=== PATIENT | female | born 1960 | race Caucasian/White ===

== ENCOUNTER → 2016-12-17 | Outpatient (CLI) | payer MEDICARE ==
[~2016-12-17] MED LIST: ASPIRIN ADULT L81 M1 PO; ASPIRIN325 M2 PO; B12-METHYL1000 MCG PO; CIPROFLOXACIN500 MG PO; COMPAZINE10 MG PO; Clopidogrel75 MG PO; DAYPRO600 M1 PO; IBUPROFEN600 MG PO; LIPITOR20 MG PO; LIPITOR40 MG PO; LISINOPRIL5 MG PO; LOPRESSOR25 MG PO; Lopressor25 MG PO; NATURE'S BLEND F1 MG PO; OMEPRAZOLE20 M2 PO; Orphenadrine C100 MG PO; ROBAXIN750 MG PO; TOPAMAX25 M3 PO; TOPAMAX50 MG PO; TYLENOL WITH CO1 TA1 PO; Tessalon Perle100 MG PO; VICODIN 500 MG-1 TAB PO; ZANTAC150 MG PO
== END | disposition home or self-care (01) ==
LOC: RAD 22:41
DX: J32.4 Chronic pansinusitis (principal); M25.551 Pain in right hip; R09.81 Nasal congestion

== ENCOUNTER 2017-02-07 19:17 | Emergency (ER) | payer MEDICARE ==
[~2017-02-07] VITALS: Ht 162.5 cm; Wt 79.4 kg
[2017-02-07 19:28] VITALS: BP 111/77
[2017-02-07] MEDS ORDERED: PERCOCET 325 MG1 TA2 PO (20:52)
== END 2017-02-07 21:05 | disposition home or self-care (01) ==
LOC: ED 19:17
DX: S42.402A Unspecified fracture of lower end of left humerus, initial encounter for closed fracture (principal); F17.200 Nicotine dependence, unspecified, uncomplicated; E78.5 Hyperlipidemia, unspecified; Z79.82 Long term (current) use of aspirin; W18.30XA Fall on same level, unspecified, initial encounter; Y93.89 Activity, other specified; Y92.9 Unspecified place or not applicable; Y99.9 Unspecified external cause status

== ENCOUNTER → 2017-10-10 | Outpatient (CLI) | payer MEDICARE ==
[~2017-10-10] MED LIST changes: +PERCOCET 325 MG1 TA2 PO
== END | disposition home or self-care (01) ==
LOC: RAD 17:31
DX: M54.5 Low back pain (principal); M25.551 Pain in right hip; M79.604 Pain in right leg

== ENCOUNTER → 2018-10-04 | Outpatient (CLI) | payer MEDICARE, MEDICAID ==
[~2018-10-04] MED LIST changes: +MAGNESIUM250 M1 PO
== END | disposition home or self-care (01) ==
LOC: US 09-20 16:00
DX: N32.89 Other specified disorders of bladder (principal)

== ENCOUNTER → 2018-11-01 | Outpatient (CLI) | payer MEDICARE, MEDICAID ==
[~2018-11-01] MED LIST changes: +ATORVASTATIN CA40 M1 PO; +ESCITALOPRAM OX20 MG PO; +LIPITOR10 MG PO
[2018-11-01 12:45] LABS: BILIRUBIN NEGATIVE (NEGATIVE); BLOOD 2+ (NEGATIVE); CLARITY SL CLOUDY (CLEAR); COLOR YELLOW (YELLOW); GLUCOSE NEGATIVE (NEGATIVE); KETONE TRACE (NEGATIVE); LEUKO ESTERASE NEGATIVE (NEGATIVE); NITRITE NEGATIVE (NEGATIVE); PH 5.5 (5.0-9.0); SPECIFIC GRAVITY >= 1.030 (1.005-1.030); UROBILINOGEN 0.2 E.U./dl (0.2-1.0)
[2018-11-01 12:56] LABS: CREATININE 1.42 mg/dL (0.55-1.02)
[2018-11-01 13:35] LABS: BACTERIA 3+; CALCIUM OXALATE CRYSTALS TRACE; MUCOUS 1+; YEAST 1+
[2018-11-01 13:36] LABS: EPITHELIAL CELLS 20-30; WBC 16-20 wbc/hpf (0-5)
== END | disposition home or self-care (01) ==
LOC: LAB 12:14
PROVIDERS: Urology
DX: R31.9 Hematuria, unspecified (principal)

== ENCOUNTER → 2018-11-03 | Outpatient (CLI) | payer MEDICARE, MEDICAID | END | disposition home or self-care (01) | LOC: CT 11-01 12:12 | DX: R31.9 Hematuria, unspecified (principal); R39.198 Other difficulties with micturition ==

== ENCOUNTER → 2018-11-10 | Outpatient (CLI) | payer MEDICARE, MEDICAID ==
[2018-11-10 10:08] LABS: BASO % 0.5 % (0.0-1.0); EOS # 0.2 10*3/uL (0.0-0.4); EOS % 2.4 % (1.0-4.0); HEMATOCRIT 43.5 % (37.0-47.0); HEMOGLOBIN 13.9 g/dl (12.0-16.0); LYMPH # 2.1 10*3/uL (1.3-4.4); LYMPH % 24.8 % (27.0-41.0); MEAN CELL VOLUME 93.5 fl (81.0-99.0); MEAN CORPUSCULAR HGB 29.9 pg (27.0-31.0); MONO # 0.6 10*3/uL (0.1-1.0); MONO % 7.4 % (3.0-9.0); NEUT # 5.6 10*3/uL (2.3-7.9); NEUT % 64.6 % (47.0-73.0); PLATELET COUNT AUTOMATED 301 10*3/uL (130-400); RED BLOOD COUNT 4.65 10*6/uL (4.10-5.10); RED CELL DISTRI WIDTH 14.2 % (0-14.5); WHITE BLOOD COUNT 8.6 10*3/uL (4.8-10.8)
[2018-11-10 10:24] LABS: ALBUMIN 3.4 gm/dl (3.1-4.5); ALKALINE PHOSPHATASE 101 U/L (45-117); BUN 17 mg/dl (7-24); CHLORIDE 112 mmol/L (98-107); CREATININE 0.97 mg/dL (0.55-1.02); POTASSIUM 3.9 mmol/L (3.5-5.1); SGOT/AST 14 IU/L (3-35); SGPT/ALT 15 U/L (12-78); SODIUM 142 mmol/L (136-145); TOTAL PROTEIN 7.2 gm/dL (6.4-8.2)
== END | disposition home or self-care (01) ==
LOC: LAB 09:39
PROVIDERS: Urology
DX: G35 Multiple sclerosis (principal); R53.83 Other fatigue

== ENCOUNTER → 2019-05-31 | Outpatient (CLI) | payer MEDICARE ==
[2019-05-31 10:45] LABS: BASO # 0.1 10*3/uL (0.0-0.1); BASO % 0.7 % (0.0-1.0); EOS # 0.3 10*3/uL (0.0-0.4); EOS % 3.6 % (1.0-4.0); HEMATOCRIT 43.2 % (37.0-47.0); HEMOGLOBIN 14.3 g/dl (12.0-16.0); LYMPH % 27.4 % (27.0-41.0); MEAN CELL VOLUME 93.7 fl (81.0-99.0); MEAN CORPUSCULAR HGB CONC 33.1 g/dl (33.0-37.0); MEAN PLATELET VOLUME 10.3 fl (9.6-12.3); MONO # 0.6 10*3/uL (0.1-1.0); MONO % 7.8 % (3.0-9.0); NEUT # 4.3 10*3/uL (2.3-7.9); NEUT % 60.1 % (47.0-73.0); PLATELET COUNT AUTOMATED 313 10*3/uL (130-400); RED BLOOD COUNT 4.61 10*6/uL (4.10-5.10); RED CELL DISTRI WIDTH 14.4 % (0-14.5); WHITE BLOOD COUNT 7.2 10*3/uL (4.8-10.8)
[2019-05-31 11:22] LABS: ALBUMIN 3.3 gm/dl (3.1-4.5); ALKALINE PHOSPHATASE 115 U/L (45-117); BUN 16 mg/dl (7-24); CHLORIDE 108 mmol/L (98-107); POTASSIUM 3.9 mmol/L (3.5-5.1); SGOT/AST 18 IU/L (3-35); SGPT/ALT 25 U/L (12-78); SODIUM 142 mmol/L (136-145); TOTAL PROTEIN 7.1 gm/dL (6.4-8.2)
[2019-05-31 15:31] LABS: BILIRUBIN NEGATIVE (NEGATIVE); BLOOD 2+ (NEGATIVE); CLARITY CLEAR (CLEAR); COLOR YELLOW (YELLOW); GLUCOSE NEGATIVE (NEGATIVE); KETONE NEGATIVE (NEGATIVE); LEUKO ESTERASE NEGATIVE (NEGATIVE); NITRITE NEGATIVE (NEGATIVE); SPECIFIC GRAVITY 1.025 (1.005-1.030); UROBILINOGEN 0.2 E.U./dl (0.2-1.0)
[2019-05-31 15:42] LABS: BACTERIA TRACE; WBC 0-2 wbc/hpf (0-5)
== END | disposition home or self-care (01) ==
LOC: LAB 09:59
PROVIDERS: Nurse Practitioner Family
DX: N39.0 Urinary tract infection, site not specified (principal); R31.9 Hematuria, unspecified

== ENCOUNTER → 2019-06-04 | Outpatient (CLI) | payer MEDICARE | END | disposition home or self-care (01) | LOC: CT 01:07 | DX: K76.0 Fatty (change of) liver, not elsewhere classified (principal); R31.9 Hematuria, unspecified; I70.0 Atherosclerosis of aorta ==

== ENCOUNTER → 2019-06-20 | Outpatient (CLI) | payer MEDICARE, MEDICAID | END | disposition home or self-care (01) | LOC: NM 08:58 | DX: R10.9 Unspecified abdominal pain (principal); R07.81 Pleurodynia; R31.9 Hematuria, unspecified ==

== ENCOUNTER → 2019-07-05 | Outpatient (CLI) | payer MEDICARE, MEDICAID ==
[2019-07-05 16:09] LABS: CREATININE 1.12 mg/dL (0.55-1.02)
== END | disposition home or self-care (01) ==
LOC: LAB 15:27
PROVIDERS: Radiology Diagnostic Radiology
DX: T50.8X5A Adverse effect of diagnostic agents, initial encounter (principal)

== ENCOUNTER → 2019-07-06 | Outpatient (CLI) | payer MEDICARE, MEDICAID | END | disposition home or self-care (01) | LOC: MRI 01:04 | DX: M47.816 Spondylosis without myelopathy or radiculopathy, lumbar region (principal); M47.814 Spondylosis without myelopathy or radiculopathy, thoracic region ==

== ENCOUNTER → 2020-09-08 | Outpatient (CLI) | payer MEDICARE, MEDICAID ==
[2020-09-08 14:18] LABS: BASO # 0.1 10*3/uL (0.0-0.1); BASO % 0.7 % (0.0-1.0); EOS # 0.1 10*3/uL (0.0-0.4); EOS % 1.4 % (1.0-4.0); HEMATOCRIT 43.8 % (37.0-47.0); LYMPH # 2.1 10*3/uL (1.3-4.4); LYMPH % 29.8 % (27.0-41.0); MEAN CELL VOLUME 91.1 fl (81.0-99.0); MEAN CORPUSCULAR HGB 29.9 pg (27.0-31.0); MEAN CORPUSCULAR HGB CONC 32.9 g/dl (33.0-37.0); MEAN PLATELET VOLUME 10.5 fl (9.6-12.3); MONO # 0.4 10*3/uL (0.1-1.0); MONO % 6.3 % (3.0-9.0); NEUT # 4.3 10*3/uL (2.3-7.9); NEUT % 61.5 % (47.0-73.0); PLATELET COUNT AUTOMATED 315 10*3/uL (130-400); RED BLOOD COUNT 4.81 10*6/uL (4.10-5.10)
== END | disposition home or self-care (01) ==
LOC: LAB 13:30
PROVIDERS: ATTEND Internal Medicine Gastroenterology
DX: K62.5 Hemorrhage of anus and rectum (principal)

== ENCOUNTER → 2020-10-17 | Outpatient (CLI) | payer OTHER, MEDICAID | END | disposition home or self-care (01) | LOC: COVID19 10:31 | PROVIDERS: ATTEND Internal Medicine Gastroenterology | DX: U07.1 COVID-19 (principal) ==

== ENCOUNTER 2022-02-09 11:03 | Emergency (ER) | payer OTHER, MEDICAID ==
[~2022-02-09] VITALS: Ht 162.5 cm; Wt 81.6 kg
[2022-02-09 11:33] LABS: BASO % 0.4 % (0.0-1.0); EOS # 0.1 10*3/uL (0.0-0.4); EOS % 1.9 % (1.0-4.0); HEMATOCRIT 46.2 % (37.0-47.0); LYMPH # 1.9 10*3/uL (1.3-4.4); LYMPH % 32.9 % (27.0-41.0); MEAN CELL VOLUME 90.1 fl (81.0-99.0); MEAN CORPUSCULAR HGB 30.2 pg (27.0-31.0); MEAN CORPUSCULAR HGB CONC 33.5 g/dl (33.0-37.0); MEAN PLATELET VOLUME 10.1 fl (9.6-12.3); MONO # 0.4 10*3/uL (0.1-1.0); MONO % 6.9 % (3.0-9.0); NEUT # 3.3 10*3/uL (2.3-7.9); NEUT % 57.7 % (47.0-73.0); PLATELET COUNT AUTOMATED 245 10*3/uL (130-400); RED BLOOD COUNT 5.13 10*6/uL (4.10-5.10); RED CELL DISTRI WIDTH 14.2 % (0-14.5); WHITE BLOOD COUNT 5.7 10*3/uL (4.8-10.8)
[2022-02-09 11:44] LABS: ACT PARTIAL THROMBO TIME 32.3 SECONDS (20.0-32.1)
[2022-02-09 11:47] LABS: ALKALINE PHOSPHATASE 100 U/L (45-117); BUN 11 mg/dl (7-24); CHLORIDE 108 mmol/L (98-107); CREATININE 0.84 mg/dL (0.55-1.02); POTASSIUM 3.6 mmol/L (3.5-5.1); SGOT/AST 23 IU/L (3-35); SGPT/ALT 21 U/L (12-78); SODIUM 138 mmol/L (136-145); TOTAL PROTEIN 7.1 gm/dL (6.4-8.2)
[2022-02-09 14:59] VITALS: BP 107/65
== END 2022-02-09 15:24 | disposition home or self-care (01) ==
LOC: ED 11:03
PROVIDERS: Emergency Medicine
DX: U07.1 COVID-19 (principal); Z79.899 Other long term (current) drug therapy; Z87.891 Personal history of nicotine dependence

== ENCOUNTER → 2023-02-22 | Outpatient (CLI) | payer OTHER, MEDICAID ==
[~2023-02-22] MED LIST changes: +PROVENTIL HFA6.7 GM INH; +VITAMIN C500 M4 PO; +VITAMIN D350 MC2 PO; +[UNRECOGNIZED DRUG - OTHER] PO
[2023-02-22 12:34] LABS: CHOLESTEROL 124 mg/dL (<200); LDL CHOLESTEROL 64 mg/dL (9-159); TRIGLYCERIDES 128 mg/dl (<150)
== END | disposition home or self-care (01) ==
LOC: LAB 11:46
PROVIDERS: ATTEND Internal Medicine
DX: E78.49 Other hyperlipidemia (principal)

== ENCOUNTER 2023-07-10 16:22 | Emergency (ER) | payer OTHER, MEDICAID ==
[~2023-07-10] VITALS: Ht 1645 cm; Wt 73.9 kg
[2023-07-10] MEDS ORDERED: ASPIRIN ADULT L81 M2 PO (16:51)
[2023-07-10 16:53] VITALS: BP 134/67
[2023-07-10 17:04] LABS: BASO # 0.1 10*3/uL (0.0-0.1); BASO % 0.3 % (0.0-1.0); EOS # 0.1 10*3/uL (0.0-0.4); EOS % 0.6 % (1.0-4.0); HEMATOCRIT 41.6 % (37.0-47.0); LYMPH # 3.8 10*3/uL (1.3-4.4); LYMPH % 22.2 % (27.0-41.0); MEAN CELL VOLUME 93.3 fl (81.0-99.0); MEAN CORPUSCULAR HGB 30.9 pg (27.0-31.0); MEAN CORPUSCULAR HGB CONC 33.2 g/dl (33.0-37.0); MEAN PLATELET VOLUME 9.9 fl (9.6-12.3); MONO # 1.2 10*3/uL (0.1-1.0); MONO % 6.7 % (3.0-9.0); NEUT # 11.9 10*3/uL (2.3-7.9); NEUT % 69.3 % (47.0-73.0); PLATELET COUNT AUTOMATED 422 10*3/uL (130-400); RED BLOOD COUNT 4.46 10*6/uL (4.10-5.10); RED CELL DISTRI WIDTH 15.7 % (0-14.5); WHITE BLOOD COUNT 17.1 10*3/uL (4.8-10.8)
[2023-07-10 17:26] LABS: POTASSIUM 3.6 mmol/L (3.4-5.1); TOTAL PROTEIN 7.1 gm/dL (6.0-8.0)
[2023-07-10] MEDS ORDERED: ZANAFLEX4 MG PO (18:41)
[2023-07-10] MEDS ORDERED: TRAMADOL HCL50 MG PO (18:41)
[2023-07-10] MEDS ORDERED: SEPTDS PO (18:41)
[2023-07-10 18:48] LABS: BILIRUBIN Negative (Negative); BLOOD Trace-Lysed (Negative); CLARITY Cloudy (Clear); COLOR Yellow (Yellow); GLUCOSE Negative (Negative); KETONE Trace (Negative); LEUKO ESTERASE Negative (Negative); NITRITE Negative (Negative); SPECIFIC GRAVITY 1.025 (1.001-1.030); UROBILINOGEN 0.2 E.U./dl (0.0-1.0)
[2023-07-10 18:57] LABS: CALCIUM OXALATE CRYSTALS 2+
== END 2023-07-10 19:31 | disposition home or self-care (01) ==
LOC: ED 16:22
PROVIDERS: Emergency Medicine
DX: M54.50 Low back pain, unspecified (principal); M19.09 Primary osteoarthritis, other specified site; N39.0 Urinary tract infection, site not specified; I25.2 Old myocardial infarction; F41.9 Anxiety disorder, unspecified; F32.A Depression, unspecified; G43.909 Migraine, unspecified, not intractable, without status migrainosus; Z88.8 Allergy status to other drugs, medicaments and biological substances; Z98.51 Tubal ligation status; Z95.5 Presence of coronary angioplasty implant and graft; Z98.890 Other specified postprocedural states; F17.210 Nicotine dependence, cigarettes, uncomplicated